=== PATIENT | female | born 1935 | race Caucasian/White ===

== ENCOUNTER 2019-05-28 12:36 | Emergency (ER) | payer MEDICARE, MEDICAID, SELFPAY ==
[2019-05-28 13:44] VITALS: PULSE 96; RESP 20; TEMP 36.5; O2SAT 98
[2019-05-28 14:50] LABS: Basophils Absolute Auto 0.02 K/mm3 (0.00-0.10); Basophils Percent Auto 0.4 % (0.0-1.0); Eosinophils Absolute Auto 0.02 K/mm3 (0.02-0.50); Eosinophils Percent Auto 0.4 % (1.0-6.0); Hematocrit 23.8 % (35.0-42.0); Hemoglobin 7.7 g/dL (11.7-13.8); Immature Granulocyte Absolute 0.02 K/mm3 (0.00-0.00); Immature Granulocyte Percent A 0.4 % (0.0-0.0); Lymphocytes Absolute Auto 0.89 K/mm3 (1.10-4.50); Lymphocytes Percent Auto 19.3 % (18.0-42.0); Mean Corpuscular HGB Conc 32.4 g/dL (32.0-36.0); Mean Corpuscular Volume 102.1 fL (78.0-102.0); Mean Platelet Volume 11.5 fl (9.2-11.8); Monocytes Absolute Auto 0.25 K/mm3 (0.10-0.90); Monocytes Percent Auto 5.4 % (2.0-11.0); Neutrophils Absolute Auto 3.4 K/mm3 (1.7-7.2); Neutrophils Percent Auto 74.1 % (50.0-70.0); Platelet Count Result 105 K/mm3 (150-420); Red Blood Count 2.33 M/mm3 (4.20-5.40); Red Cell Distribution Width 13.6 % (11.6-14.4); White Blood Count 4.6 K/mm3 (4.8-10.8)
[2019-05-28 15:02] LABS: INR 2.6; Prothrombin Time 26.2 Seconds (9.64-11.0)
[2019-05-28] MEDS: SODIUM CHLORIDE 0.9% IV 1,000 ML 120 ML IV CONT (15:08)
[2019-05-28] MEDS: HALOPERIDOL LACTATE 5 MG/ML VIAL 1 MG IM (15:13)
[2019-05-28] MEDS: ONDANSETRON INJ 4 MG/2 ML VIAL IV PUSH (15:15)
--- NOTE | 2019-05-28 15:26 | PC.NURSE ---
1500 PT. VERY AGITATED . CONFUSSED TO TIME AND PLACE. YELLING AT STAFF. ORDERS RECIEVED PER DR. SAWYER FOR AGITATION.
[2019-05-28] MEDS: HALOPERIDOL LACTATE 5 MG/ML VIAL 2 MG IM (15:52)
--- NOTE | 2019-05-28 16:26 | ED.GIBLEED ---
HPI - GI Bleed General Chief complaint: GI Bleed Stated complaint: fatigue,upset stomach Source: RN notes reviewed (notes from [facility] ) Mode of arrival: EMS Limitations: dementia History of Present Illness HPI Narrative: 83 y.o. pt. from [facility] had an episode of coffee ground emesis this AM. Takes warfarin and carvedelol daily. No hx of g.i. bleed. No code. Pt has dementia, DM, Hx of systolic and diastolic heart failure, paced rhythm, atrial fibrillation and prosthetic heart valve ROS is limited because of dementia. When I entered the exam room patient was hollering out stating she just didn't feel right but had always been healthy so didn't know how to describe it. Minutes later when asked ROS pt stated she felt great. Related Data Home Medications Medication Instructions Recorded Confirmed acetaminophen 1,000 mg PO BID 05/28/19 05/28/19 acetaminophen 650 mg PO Q4-6H PRN 05/28/19 05/28/19 allopurinol 150 mg PO DAILY 05/28/19 05/28/19 alum-mag hydroxide-simeth [Mylanta 30 ml PO Q6-8H PRN 05/28/19 05/28/19 Maximum Strength] artifi.tears(hypromellose)(PF) 1 drp OPHTHALMIC (EYE) TID 05/28/19 05/28/19 aspirin [Aspirin Low Dose] 81 mg PO DAILY 05/28/19 05/28/19 brimonidine-timolol [Combigan] 1 drp OPHTHALMIC (EYE) BID 05/28/19 05/28/19 buspirone 5 mg PO DAILY 05/28/19 05/28/19 carvedilol 3.125 mg PO BID 05/28/19 05/28/19 citalopram 20 mg PO DAILY 05/28/19 05/28/19 dextran 70-hypromellose [GenTeal 2 drp OPHTHALMIC (EYE) QID PRN 05/28/19 05/28/19 Tears Mild] ferrous sulfate 325 mg PO DAILY 05/28/19 05/28/19 fluticasone propion-salmeterol 1 inh INHALATION Q12H 05/28/19 05/28/19 [Advair Diskus] furosemide 40 mg PO DAILY 05/28/19 05/28/19 furosemide [Lasix] 40 mg PO DAILY 05/28/19 05/28/19 gabapentin 300 mg PO BID 05/28/19 05/28/19 hydroxyzine HCl 25 mg PO BID PRN 05/28/19 05/28/19 insulin glargine [Lantus Solostar 12 unit SUBCUT HS 05/28/19 05/28/19 U-100 Insulin] ipratropium-albuterol 3 ml INHALATION Q6H PRN 05/28/19 05/28/19 latanoprost 1 drp OPHTHALMIC (EYE) QPM 05/28/19 05/28/19 loperamide 4 mg PO DAILY 05/28/19 05/28/19 metformin 500 mg PO DAILY 05/28/19 05/28/19 vavdwdvolche-krf-uupv-FA-vit K 1 tablet PO DAILY 05/28/19 05/28/19 [Adults Multivitamin] polyethylene glycol 3350 [Miralax] 17 g PO DAILY PRN 05/28/19 05/28/19 sacubitril-valsartan [Entresto] 1 tablet PO BID 05/28/19 05/28/19 simvastatin 20 mg PO DAILY 05/28/19 05/28/19 spironolactone 12.5 mg PO DAILY 05/28/19 05/28/19 warfarin 4 mg PO DAILY 05/28/19 05/28/19 Allergies Allergy/AdvReac Type Severity Reaction Status Date / Time enoxaparin Allergy Unknown Verified 05/28/19 14:05 heparin Allergy Unknown Verified 05/28/19 14:05 ketorolac Allergy Unknown Verified 05/28/19 14:06 Review of Systems Review of Systems: Narrative: Reliable ROS unobtainable secondary to dementia. Notes from [facility] do not address ROS. [facility] Past Medical History Medical History Atrial fibrillation COPD (chronic obstructive pulmonary disease) Dementia Diastolic CHF, chronic Gout Pacemaker displacement Systolic CHF Surgical History Surgical History (Updated 05/29/19 @ 03:08 by Junior Dominguez MD) History of prosthetic heart valve Social History Social History (Updated 05/29/19 @ 03:08 by Junior Dominguez MD) Living arrangements: [facility] Exam Const: General: no acute distress Other: Does not know place, location, or reason she is here. HENMT: Head: normal to inspection Mouth: Yes moist mucous membranes Eyes: Conjunctivae: conjunctivae normal Neck: Neck: no lymphadenopathy Chest: Chest palpation & inspection: normal inspection of the chest Resp: Effort & Inspection: normal respiratory effort Auscultation: clear to auscultation bilaterally Cardio: Rate: regular rate Rhythm: regular rhythm GI: GI Palp: Yes Soft to palpation, No Tenderness to palpation present (GI), No Palpable mass present and N
[2019-05-28] MEDS: LORAZEPAM INJ 2 MG/ML VIAL 1 MG IV PUSH (16:39)
--- NOTE | 2019-05-28 16:43 | PC.NURSE ---
PT. CONT TO BE AGITATED. ANGRY WITH STAFF AND FAMILY FOR VARIOUS REASONS. .ORDERS RECIEVED
--- NOTE | 2019-05-28 16:49 | PC.NURSE ---
ST. STILL CALLED FOR POSSIBLE TRANSFER. CALMER . FAMILY AT BEDSIDE.
--- NOTE | 2019-05-28 17:00 | PC.NURSE ---
[facility] CALLS [facility] ACCEPT PT. WAITING FOR ROOM DEPOSITION CARE TURNED OVER TO DEB. MARISCAL. SWETA
[2019-05-28 17:05] LABS: Lactic Acid 2.4 mmol/L (0.4-2.0)
--- NOTE | 2019-05-28 17:24 | PC.NURSE ---
oriented family to new healthcare administrator, [facility]
[2019-05-28] MEDS: PANTOPRAZOLE SODIUM IV 40 MG VIAL IV PUSH (17:52)
[2019-05-28] MEDS: PHYTONADIONE ADULT INJ 10 MG in DEXTROSE 5% IN WATER 50 ML 100 MG IVPB (17:57)
[2019-05-28 18:02] LABS: BNP 137 pg/mL (0-100)
[2019-05-28 20:00] VITALS: BP 124/55; PULSE 69; RESP 16; TEMP 36.6; O2SAT 93
--- NOTE | 2019-05-30 23:28 | PC.NURSE ---
Phytonadione in Dextrose 5% IVPB stopped at 1845
== END 2019-05-28 19:15 | disposition short-term general hospital (02) ==
PROVIDERS: Emergency Provider Family Medicine; PCP Family Medicine
DX: K92.1 Melena (principal); K92.0 Hematemesis; F03.90 Unspecified dementia, unspecified severity, without behavioral disturbance, psychotic disturbance, mood disturbance, and anxiety; D64.9 Anemia, unspecified; N18.3 Chronic kidney disease, stage 3 (moderate); I48.91 Unspecified atrial fibrillation; J44.9 Chronic obstructive pulmonary disease, unspecified; I50.9 Heart failure, unspecified
CPT/HCPCS: 36415; 83605; 83880; 85025; 85610; 86850; 86900; 86901; 96361; 96365; 96372; 96375; 99283; 99285; C9113; J1630; J2060; J2405; J3430; J7030

== ENCOUNTER 2019-07-16 15:38 | Emergency (ER) | payer MEDICARE, MEDICAID, SELFPAY ==
--- NOTE | ~2019-07-16 | XR_ITS ---
EXAMINATION: XR chest 2V EXAM DATE: 07/16/2019 17:07 INDICATION: Cough, shortness of breath. Patient underwent investigation. TECHNIQUE: Frontal and lateral projections of the chest obtained and reviewed. There is no prior emmett dy for comparison. FINDINGS: There is cardiomegaly. Sternotomy wires are present without findings to suggest sternal de hiscence. 2 cardiac valve replacements. There are small pleural effusions. There is small amount of b ibasilar atelectasis. There is pulmonary vascular congestion. Indistinct reticulation probably mild p ulmonary edema. Infection not excludable but no confluent consolidation. There is no pneumothorax amish pected. There are mild bony degenerative changes. IMPRESSION: 1. Findings consistent with CHF exacerbation. 2. Bibasilar subsegmental atelectasis. 3. Infection not excludable. Reviewed, dictated and finalized at location A.
--- NOTE | ~2019-07-16 | CT_ITS ---
EXAMINATION: CT brain wo con EXAM DATE: 07/16/2019 17:09 INDICATION: Transient alteration of awareness. TECHNIQUE: Spiral CT of the head was performed without contrast. Axial, coronal and sagittal images were reviewed. The dose-length product (DLP) for this examination was 605.33 mGy-cm. The exposure w as tailored according to patient size, and iterative reconstruction (ASIR) was used as additional dos e reduction technique. There is no prior study for comparison. FINDINGS: There is no acute intraparenchymal hemorrhage. No evidence of intraparenchymal brain mass lesion. No evidence of acute infarction. Please note that initial head CT has limited sensitivity f or small or acute infarctions. 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 There is mild periventricular and subcortical hypodensity, nonspecific but probably related to small vesse l ischemic disease. There is moderate prominence of the sulci and ventricles related to cerebral at rophy. There is intracranial carotid arteriosclerosis. There are no extra-axial collections. Ther e is no mass effect or midline shift. Patient has had bilateral ocular lens surgery. Soft tissue is unremarkable. The visualized sinuses and mastoid air cells are well aerated. IMPRESSION: 1. No acute intracranial findings. 2. Chronic age related findings. 3. Small old infarctions. Reviewed, dictated and finalized at location A.
[2019-07-16 15:45] VITALS: BP 151/73; PULSE 70; RESP 14; TEMP 36.6; O2SAT 97
--- NOTE | 2019-07-16 15:46 | ED.PSYCH ---
HPI - Psych General Chief Complaint: Psychiatric Symptoms Stated Complaint: AMB Time Seen by Provider: 07/16/19 15:45 Source: patient Mode of arrival: EMS Limitations: no limitations History of Present Illness HPI Narrative: 83-year-old woman [facility] the [facility] with a complaint of suicidality. She states that she wanted to . On questioning here she states that she would have cut her wrist and even if she did have a knife as she is very resourceful. She did not take any medications other than those prescribed which was Ativan 0.25 at 3:00 p.m. today. She is up EY for COVID-19 as she has had cough and shortness of breath recently. She had negative SARS-CoV-2 test on 07/11. There are 2 residents of the penitentiary in 2 staff members who have been positive. She denies rhinorrhea, productive cough, sore throat, headaches, fever, chills, chest pain, abdominal pain, nausea, vomiting or diarrhea. She denies dysuria. MD complaint: suicidal ideation Onset (ago): hour(s) Duration: constant History of same: No Relieving factors: none Exacerbating factors: other ( At present penitentiary residence are confined to the rooms.) Associated psychiatric symptoms: suicidal ideation Associated symptoms: shortness of breath If self harm: admits thoughts of self harm and has plan Related Data Home Medications Medication Instructions Recorded Confirmed acetaminophen 1,000 mg PO BID 05/28/19 07/16/19 acetaminophen 650 mg PO Q4-6H PRN 05/28/19 07/16/19 allopurinol 150 mg PO DAILY 05/28/19 07/16/19 alum-mag hydroxide-simeth [Mylanta 30 ml PO Q6-8H PRN 05/28/19 07/16/19 Maximum Strength] artifi.tears(hypromellose)(PF) 1 drp OPHTHALMIC (EYE) TID 05/28/19 07/16/19 aspirin [Aspirin Low Dose] 81 mg PO DAILY 05/28/19 07/16/19 brimonidine-timolol [Combigan] 1 drp OPHTHALMIC (EYE) BID 05/28/19 07/16/19 buspirone 5 mg PO DAILY 05/28/19 07/16/19 carvedilol 3.125 mg PO BID 05/28/19 07/16/19 citalopram 20 mg PO DAILY 05/28/19 07/16/19 dextran 70-hypromellose [GenTeal 2 drp OPHTHALMIC (EYE) QID PRN 05/28/19 07/16/19 Tears Mild] ferrous sulfate 325 mg PO DAILY 05/28/19 07/16/19 fluticasone propion-salmeterol 1 inh INHALATION Q12H 05/28/19 07/16/19 [Advair Diskus] furosemide 40 mg PO DAILY 05/28/19 07/16/19 furosemide [Lasix] 40 mg PO DAILY 05/28/19 07/16/19 gabapentin 300 mg PO BID 05/28/19 07/16/19 hydroxyzine HCl 25 mg PO BID PRN 05/28/19 07/16/19 insulin glargine [Lantus Solostar 12 unit SUBCUT HS 05/28/19 07/16/19 U-100 Insulin] ipratropium-albuterol 3 ml INHALATION Q6H PRN 05/28/19 07/16/19 latanoprost 1 drp OPHTHALMIC (EYE) QPM 05/28/19 07/16/19 loperamide 4 mg PO DAILY 05/28/19 07/16/19 metformin 500 mg PO DAILY 05/28/19 07/16/19 xedsyyxzyaac-uri-rrjb-FA-vit K 1 tablet PO DAILY 05/28/19 07/16/19 [Adults Multivitamin] polyethylene glycol 3350 [Miralax] 17 g PO DAILY PRN 05/28/19 07/16/19 sacubitril-valsartan [Entresto] 1 tablet PO BID 05/28/19 07/16/19 simvastatin 20 mg PO DAILY 05/28/19 07/16/19 spironolactone 12.5 mg PO DAILY 05/28/19 07/16/19 warfarin 4 mg PO DAILY 05/28/19 07/16/19 Allergies Allergy/AdvReac Type Severity Reaction Status Date / Time enoxaparin Allergy Unknown Verified 05/28/19 14:05 heparin Allergy Unknown Verified 05/28/19 14:05 ketorolac Allergy Unknown Verified 05/28/19 14:06 Review of Systems Constitutional: Constitutional: Denies chills, Denies fatigue, Denies fever(s) and Denies weakness Eyes: Eyes: Denies change in vision and Denies photophobia ENT: Denies dysphagia, Denies nasal congestion and Denies sore throat Cardiovascular: Cardiovascular: Denies chest pain and Denies radiating jaw, neck or arm pain Respiratory: Respiratory: Reports cough, Reports dyspnea and Denies wheezing Gastrointestinal: Gastrointestinal: Denies abdominal pain, Denies diarrhea, Denies nausea and Denies vomiting Genitourinary: Genitourinary: Denies hematuria, Denies nocturia and Jamie
--- NOTE | 2019-07-16 15:47 | ECG_ITS ---
Measurements Intervals [place] Rate: 69 P: 208 IL: 295 QRS: -50 QRSD: 169 T: 136 QT: 434 QTc: 468 Interpretive Statements ATRIAL SENSE- ELECTRONIC VENTRICULAR PACEMAKER BASELINE ARTIFACT- I, II, III, AVR, AVL, AVF, V1, V3-V6 NO FURTHER INTERPRETATION IS POSSIBLE ATYPICAL ECG Electronically Signed On 07-16-2019 18:17:25 CDT by Chad Sams D.O.
[2019-07-16 16:05] LABS: Add Urine Microscopic? YES; Appearance Urine Clear (Clear); Bilirubin Urine Negative (Negative); Blood Urine Negative (Negative); Color Urine Yellow (Yellow); Glucose Urine UA Negative (Negative); Ketones Urine Negative (Negative); Leukocyte Esterase Ur Trace LEU/UL (Negative); Nitrate Urine Negative (Negative); Protein Urine Negative (Negative); Urobilinogen Urine 0.2 mg/dL (0.2-1.0); pH Urine 6.5 (5.0-8.0)
[2019-07-16 16:16] LABS: Amphetamine Screen Urine Negative (Negative); Bacteria Urine Trace /hpf; Barbiturate Screen Urine Negative (Negative); Benzodiazepines Screen Urine Negative (Negative); Cannabinoid Screen Urine Negative (Negative); Cocaine Screen Urine Negative (Negative); Methadone Screen Urine Negative (Negative); Opiate Screen Urine Negative (Negative); Phencyclidine Screen Urine Negative (Negative); RBC Urine 0-2 /hpf (0-2); Squamous Epithelial Cell Urine Rare /hpf (Few); WBC Urine 0-3 /hpf (0-3)
[2019-07-16 16:19] LABS: Basophils Absolute Auto 0.02 K/mm3 (0.00-0.10); Basophils Percent Auto 0.4 % (0.0-1.0); Eosinophils Absolute Auto 0.12 K/mm3 (0.02-0.50); Eosinophils Percent Auto 2.6 % (1.0-6.0); Hematocrit 32.2 % (35.0-42.0); Hemoglobin 9.6 g/dL (11.7-13.8); Immature Granulocyte Absolute 0.01 K/mm3 (0.00-0.00); Immature Granulocyte Percent A 0.2 % (0.0-0.0); Lymphocytes Absolute Auto 0.74 K/mm3 (1.10-4.50); Lymphocytes Percent Auto 16.2 % (18.0-42.0); Mean Corpuscular HGB Conc 29.8 g/dL (32.0-36.0); Mean Corpuscular Volume 103.9 fL (78.0-102.0); Mean Platelet Volume 11.1 fl (9.2-11.8); Monocytes Absolute Auto 0.56 K/mm3 (0.10-0.90); Monocytes Percent Auto 12.2 % (2.0-11.0); Neutrophils Absolute Auto 3.1 K/mm3 (1.7-7.2); Neutrophils Percent Auto 68.4 % (50.0-70.0); Platelet Count Result 129 K/mm3 (150-420); Red Cell Distribution Width 15.1 % (11.6-14.4); White Blood Count 4.6 K/mm3 (4.8-10.8)
[2019-07-16 16:24] VITALS: PULSE 66; RESP 16
[2019-07-16] MEDS: ALBUTEROL SULFATE (*SP) INHALER 4 PUFF INHALATION (16:34)
[2019-07-16 16:37] VITALS: PULSE 90; RESP 16
[2019-07-16 16:42] LABS: Alanine Aminotransferase 10 U/L (14-59); Albumin Level 3.7 g/dL (3.4-5.0); Alkaline Phosphatase 93 U/L (46-116); Anion Gap 12.6 mmol/L (7-16); Aspartate Amino Transferase 22 U/L (15-37); Bilirubin,Total 1.1 mg/dL (0.00-1.00); Blood Urea Nitrogen 26 mg/dL (7-18); Calcium 9.2 mg/dL (8.5-10.1); Carbon Dioxide 31 mmol/L (21-32); Chloride 100 mmol/L (98-108); Estimated Glomerular Filt Rate 50; Glucose 170 mg/dL (70-99); Osmolality Calculated 296 mOsm/kg (285-295); Potassium 4.6 mmol/L (3.5-5.1); Sodium 139 mmol/L (136-145); Thyroid Stimulating Hormone 4.31 uIU/mL (0.36-3.74)
[2019-07-16 16:44] LABS: Acetaminophen 0 ug/mL (10-30); Ethanol < 3 mg/dL (0-6); Salicylate < 0.3 mg/dL (2.8-20.0)
[2019-07-16] MEDS: LORAZEPAM 0.5 MG TABLET 0.25 MG PO (17:12)
[2019-07-16] MEDS: FUROSEMIDE INJ 40 MG/4 ML VIAL IV PUSH (17:28)
--- NOTE | 2019-07-16 17:59 | PC.NURSE ---
DR. NOLASCO CONTACTED, SPOKE WITH ERP
[2019-07-16] MEDS: QUEtiapine FUMARATE 25 MG TABLET 50 MG PO (18:12)
[2019-07-16 18:13] LABS: BNP 370 pg/mL (0-100)
[2019-07-16 18:15] VITALS: BP 158/77; PULSE 88; RESP 14; O2SAT 97
== END 2019-07-16 18:40 ==
PROVIDERS: Emergency Provider Emergency Medicine; PCP Family Medicine
DX: R45.1 Restlessness and agitation (principal); F03.90 Unspecified dementia, unspecified severity, without behavioral disturbance, psychotic disturbance, mood disturbance, and anxiety; I50.9 Heart failure, unspecified; I48.91 Unspecified atrial fibrillation; J44.9 Chronic obstructive pulmonary disease, unspecified; E78.5 Hyperlipidemia, unspecified; E11.9 Type 2 diabetes mellitus without complications; Z87.891 Personal history of nicotine dependence; Z79.899 Other long term (current) drug therapy
CPT/HCPCS: 36415; 70450; 71046; 80053; 80307; 81001; 83880; 84443; 85025; 93005; 94640; 96374; 99284; A9270; J1940

== ENCOUNTER 2019-10-12 16:27 | Outpatient (CLI) | payer MEDICARE, MEDICAID, SELFPAY | END 2019-10-12 16:28 | disposition home or self-care (01) | PROVIDERS: PCP Family Medicine; Visit Provider Family Medicine | DX: Z53.9 Procedure and treatment not carried out, unspecified reason (principal) | CPT/HCPCS: 99199 ==

== ENCOUNTER 2019-10-20 06:13 | Inpatient (IN) | payer MEDICARE, MEDICAID, SELFPAY ==
[2019-10-20] VITALS (7 sets, daily range): BP systolic 135–180; BP diastolic 55–77; PULSE 69–94; RESP 14–22; TEMP 36.4–37.3; O2SAT 91–98; BMI 38.2
--- NOTE | ~2019-10-20 | XR_ITS ---
EXAMINATION: XR knee LT min 4V DATE: 10/20/2019 07:23 INDICATION: Left knee pain TECHNIQUE: Four views of the left knee were obtained. COMPARISON: None. FINDINGS: No acute fracture is identified. There is partially imaged internal stabilization hardware in the distal femur traversing a healed distal femur fracture. There is diffuse edema of the visualiz ed left leg. Calcified atherosclerosis is noted. There is mild to moderate osteoarthritis of the left knee. IMPRESSION: 1. No acute osseous abnormality. Reviewed, dictated and finalized at location A.
--- NOTE | ~2019-10-20 | CT_ITS ---
EXAMINATION: CT brain wo con INDICATION: Head injury COMPARISON: 07/16/2019 TECHNIQUE: Standard unenhanced head CT. The dose-length product (DLP) was 756.67 mGy-cm. The mA was a djusted according to patient size. Iterative reconstruction technique was employed. FINDINGS: There is no acute intraparenchymal hemorrhage. No evidence of mass lesion. No evidence of a cute infarction. There is mild periventricular and subcortical hypodensity probably related to small vessel ischemic disease. There is mild prominence of the sulci and ventricles related to cerebral atr ophy. Intracranial calcified cerebral atherosclerosis is noted. There are no extra-axial collections. There is no mass effect or midline shift. Changes in the globes are likely from ocular lens surgery. There is mild mucosal thickening of the paranasal sinuses. IMPRESSION: 1. No acute intracranial abnormality. 2. Age related findings. Reviewed, dictated and finalized at location A.
--- NOTE | ~2019-10-20 | CT_ITS ---
EXAMINATION: CT pelvis wo con DATE: 10/20/2019 07:53 INDICATION: Left hip pain after fall TECHNIQUE: Computed tomography (CT) of the pelvis was performed without intravenous contrast. The dos e-length product (DLP) was 1043.64 mGy-cm. Automated exposure control and iterative reconstruction te chnique were employed. COMPARISON: None FINDINGS: Imaged intramedullary sarah in the left femur. No acute fracture is identified. Bone alignmen t is normal. There is a moderate-sized umbilical hernia containing fat and ascites. A masslike area i s seen medially in the left gluteal soft tissues. IMPRESSION: 1. No acute osseous abnormality. 2. Likely hematoma in the medial left gluteal soft tissues. Reviewed, dictated and finalized at location A.
--- NOTE | ~2019-10-20 | US_ITS ---
EXAMINATION: US venous doppler [facility] DATE: 10/21/2019 09:31 INDICATION: Bilateral lower limb pain TECHNIQUE: Sal scale images without and with compression and Doppler images of the bilateral lower e xtremity veins were obtained. COMPARISON: None FINDINGS: The right common femoral vein, profunda femoral vein, femoral vein, popliteal vein, peroneal trunk, p osterior tibial veins, and greater saphenous vein are patent. A Alvarez's cyst is noted in the right po pliteal fossa. The left common femoral vein, profunda femoral vein, femoral vein, popliteal vein, peroneal trunk, po sterior tibial veins, and greater saphenous vein are patent. IMPRESSION: 1. Patent bilateral lower extremity veins. No evidence of deep venous thrombosis. Reviewed, dictated and finalized at location A. IMPRESSION: 1. Patent bilateral lower extremity veins. No evidence of deep venous thrombosi s.
[2019-10-20] MEDS: HYDROmorphone HCL 2 MG/ML VIAL 1 MG IM (07:05)
--- NOTE | 2019-10-20 07:10 | ED.LOWEXIN ---
HPI - Extremity Injury (Lower) General Chief Complaint: Extremity Injury, Lower Stated Complaint: left knee pain Time Seen by Provider: 10/20/19 07:10 Source: patient Mode of arrival: wheelchair Limitations: no limitations History of Present Illness HPI Narrative: 84-year-old woman who comes by wheelchair to the emergency department today from the assisted with complaint of left knee pain. When patient is asked what happened, she states that she fell. Patient is agitated stating that her leg hurts, she wants to be put out of her misery and or to remove her leg. When asked for more details like when or where or where she was injured she exclaims, I do not know. detention staff states that the patient fell twice 5 days ago, hitting her head. She has been complaining of pain intermittently until yesterday when she began complaining of pain constantly. Staff states that she has a hematoma on her left upper arm that has been present since 5 days ago. Patient is usually ambulatory and often gets up on her own in spite of staff instructions to call for help. MD complaint: knee injury Injury: Left: knee Type of Injury: unknown Place: other (detention) Severity: severe Relieving factors: nothing Exacerbating factors: weight bearing, movement and palpation Context: fall Associated symptoms: able to partially bear weight Treatments prior to arrival: bandage Related Data Home Medications Medication Instructions Recorded Confirmed acetaminophen 1,000 mg PO BID 05/28/19 10/20/19 allopurinol 200 mg PO DAILY 05/28/19 10/20/19 alum-mag hydroxide-simeth [Mylanta 30 ml PO Q6-8H PRN 05/28/19 10/20/19 Maximum Strength] artifi.tears(hypromellose)(PF) 1 drp OPHTHALMIC (EYE) TID 05/28/19 10/20/19 brimonidine-timolol [Combigan] 1 drp OPHTHALMIC (EYE) BID 05/28/19 10/20/19 buspirone 5 mg PO DAILY 05/28/19 10/20/19 carvedilol 3.125 mg PO BID 05/28/19 10/20/19 citalopram 20 mg PO DAILY 05/28/19 10/20/19 ferrous sulfate 325 mg PO DAILY 05/28/19 10/20/19 fluticasone propion-salmeterol 1 inh INHALATION Q12H 05/28/19 10/20/19 [Advair Diskus] furosemide 40 mg PO BID 05/28/19 10/20/19 gabapentin 300 mg PO BID 05/28/19 10/20/19 insulin glargine [Lantus Solostar 12 unit SUBCUT HS 05/28/19 10/20/19 U-100 Insulin] ipratropium-albuterol 3 ml INHALATION Q6H PRN 05/28/19 10/20/19 latanoprost 1 drp OPHTHALMIC (EYE) QPM 05/28/19 10/20/19 loperamide 4 mg PO DAILY 05/28/19 10/20/19 metformin 500 mg PO BID 05/28/19 10/20/19 rokwxbvmsngq-knv-zyvn-FA-vit K 1 tablet PO DAILY 05/28/19 10/20/19 [Adults Multivitamin] polyethylene glycol 3350 [Miralax] 17 g PO DAILY PRN 05/28/19 10/20/19 sacubitril-valsartan [Entresto] 1 tablet PO BID 05/28/19 10/20/19 simvastatin 20 mg PO DAILY 05/28/19 10/20/19 spironolactone 12.5 mg PO DAILY 05/28/19 10/20/19 warfarin 4.5 mg PO DAILY 05/28/19 10/20/19 loperamide 2 mg PO DAILY 10/20/19 10/20/19 lorazepam 0.5 mg PO TID PRN 10/20/19 10/20/19 Allergies Allergy/AdvReac Type Severity Reaction Status Date / Time enoxaparin Allergy Unknown Verified 05/28/19 14:05 heparin Allergy Unknown Verified 05/28/19 14:05 ketorolac Allergy Unknown Verified 05/28/19 14:06 Review of Systems Review of Systems: Narrative: Limited by patient's mental status: alternately agitated and answering question with I don't know. ROS unobtainable: Yes unobtainable due to mental status Constitutional: Constitutional: Reports chills Eyes: Eyes: Reports change in vision Cardiovascular: Cardiovascular: Denies chest pain Gastrointestinal: Gastrointestinal: Denies abdominal pain Neurologic: Denies dizziness Allergic/Immunologic: Allergic/Immunologic: Denies lip swelling and Denies wheezing PMFSH Past Medical History Medical History Anxiety Atrial fibrillation COPD (chronic obstructive pulmonary disease) Dementia Depression Diastolic CHF, chronic Dyslipidemia GERD (gastro
[2019-10-20] MEDS: ONDANSETRON HCL ODT 4 MG TABLET PO (07:28)
[2019-10-20] MEDS: HYDROmorphone HCL 2 MG/ML VIAL 0.5 MG IM (07:29)
[2019-10-20] MEDS: NEOMYCIN/POLYMYXIN/BACITRACIN OINTMENT 15 GM TUBE 1 APPLIC TOPICAL (07:32)
--- NOTE | 2019-10-20 07:32 | PC.NURSE ---
skin tear to left upper arm cleaned. neosporin applied and dressing applied. no bleeding noted. large amt of bruising noted to left upper arm around skin tear.
[2019-10-20 08:16] LABS: Basophils Absolute Auto 0.02 K/mm3 (0.00-0.10); Basophils Percent Auto 0.4 % (0.0-1.0); Eosinophils Absolute Auto 0.11 K/mm3 (0.02-0.50); Eosinophils Percent Auto 1.9 % (1.0-6.0); Hematocrit 29.2 % (35.0-42.0); Hemoglobin 8.7 g/dL (11.7-13.8); Immature Granulocyte Absolute 0.03 K/mm3 (0.00-0.00); Immature Granulocyte Percent A 0.5 % (0.0-0.0); Lymphocytes Absolute Auto 0.62 K/mm3 (1.10-4.50); Mean Corpuscular HGB Conc 29.8 g/dL (32.0-36.0); Mean Corpuscular Hemoglobin 30.9 pg (27.0-31.0); Mean Corpuscular Volume 103.5 fL (78.0-102.0); Monocytes Absolute Auto 0.57 K/mm3 (0.10-0.90); Monocytes Percent Auto 10.1 % (2.0-11.0); Neutrophils Absolute Auto 4.3 K/mm3 (1.7-7.2); Neutrophils Percent Auto 76.1 % (50.0-70.0); Platelet Count Result 145 K/mm3 (150-420); Red Blood Count 2.82 M/mm3 (4.20-5.40); Red Cell Distribution Width 15.3 % (11.6-14.4); White Blood Count 5.7 K/mm3 (4.8-10.8)
[2019-10-20 08:22] LABS: Add Urine Microscopic? NO; Appearance Urine Clear (Clear); Bilirubin Urine Negative (Negative); Blood Urine Negative (Negative); Color Urine Yellow (Yellow); Glucose Urine UA Negative (Negative); Ketones Urine Negative (Negative); Leukocyte Esterase Ur Negative (Negative); Nitrate Urine Negative (Negative); Protein Urine Negative (Negative); Specific Grav Ur 1.015 (1.010-1.020); Urobilinogen Urine 0.2 mg/dL (0.2-1.0)
--- NOTE | 2019-10-20 08:24 | PC.NURSE ---
pt continues to yell and scream. c/o knee pain and needing repositioned. pt repositioned. no change in c/o
[2019-10-20 08:27] LABS: Alanine Aminotransferase 13 U/L (14-59); Alkaline Phosphatase 105 U/L (46-116); Aspartate Amino Transferase 29 U/L (15-37); Bilirubin,Total 1.6 mg/dL (0.00-1.00); Blood Urea Nitrogen 53 mg/dL (7-18); Calcium 8.9 mg/dL (8.5-10.1); Carbon Dioxide 31 mmol/L (21-32); Estimated CRCL calculation 30 ml/min; Estimated Glomerular Filt Rate 32; Glucose 151 mg/dL (70-99); Total Protein 8.3 g/dL (6.4-8.2)
--- NOTE | 2019-10-20 08:30 | PC.NURSE ---
pt repositioned. erp at bedside. large amt of bruising noted to buttocks bilat and lower back
[2019-10-20 08:43] LABS: Partial Thromboplastin Time 78.7 SEC (22.3-31.6); Prothrombin Time 122.6 Seconds (9.64-11.0)
[2019-10-20 09:15] LABS: Anion Gap 11.5 mmol/L (7-16); Chloride 96 mmol/L (98-107); Osmolality Calculated 293 mOsm/kg (285-295); Potassium 5.5 mmol/L (3.4-5.0); Sodium 133 mmol/L (137-145)
--- NOTE | 2019-10-20 09:34 | PC.NURSE ---
ERP on phone with PMD discussing lab test results.
--- NOTE | 2019-10-20 09:51 | PM.IMHP ---
H&P: HPI History of Present Illness Date/Time: 10/20/19 09:51 Chief complaint: fall head injury Narrative: Suellen Mohamud is a 84 year old female status post fall. Patient is a poor historian all information obtained from medical records. Patient has a past medical history of anxiety, AFib, COPD, dementia, depression, CHF, dyslipidemia, GERD, glyco Thurman, gout, pacemaker displacement, polyneuropathy, and diabetes. according to the notes patient had 2 falls within the last 5 days with injury to her head. She has complained of pain to the nursing staff at the [place] [facility] that she resides in Patient's vital signs are 149/7788, 20, 97.5, 98% on 2 L nasal cannula. Patient H&H is 8.7 and 29.2, her INR is 13.0, her sodium was 133, her potassium is 5.5, her creatinine and BUN is 1.56 and 53 with a GFR of 32 total bili slightly elevated at 1.6, BUN at 382. CT of the pelvis and head and knee x-ray negative. while patient was in the ED she received vitamin K 5 mg. Patient being admitted for elevated INR and potassium in acute on chronic renal failure Review of Systems Review of Systems: ROS unobtainable: Yes unobtainable due to mental status PMFSH Past Medical History Medical History Anxiety Atrial fibrillation COPD (chronic obstructive pulmonary disease) Dementia Depression Diastolic CHF, chronic Dyslipidemia GERD (gastroesophageal reflux disease) Glaucoma Gout Pacemaker displacement Polyneuropathy Systolic CHF T2DM (type 2 diabetes mellitus) Social History Social History Smoking status: Former smoker Alcohol intake: never Substance use: never Gender identity (if verbalized by the patient): Female Spiritual care concerns: No Meds Home Medications and Allergies Home Medications Medication Instructions Recorded Confirmed Type acetaminophen 1,000 mg PO BID 05/28/19 10/20/19 History allopurinol 200 mg PO DAILY 05/28/19 10/20/19 History alum-mag hydroxide-simeth [Mylanta 30 ml PO Q6-8H PRN 05/28/19 10/20/19 History Maximum Strength] artifi.tears(hypromellose)(PF) 1 drp OPHTHALMIC (EYE) TID 05/28/19 10/20/19 History brimonidine-timolol [Combigan] 1 drp OPHTHALMIC (EYE) BID 05/28/19 10/20/19 History buspirone 5 mg PO DAILY 05/28/19 10/20/19 History carvedilol 3.125 mg PO BID 05/28/19 10/20/19 History citalopram 20 mg PO DAILY 05/28/19 10/20/19 History ferrous sulfate 325 mg PO DAILY 05/28/19 10/20/19 History fluticasone propion-salmeterol 1 inh INHALATION Q12H 05/28/19 10/20/19 History [Advair Diskus] furosemide 40 mg PO BID 05/28/19 10/20/19 History gabapentin 300 mg PO BID 05/28/19 10/20/19 History insulin glargine [Lantus Solostar 12 unit SUBCUT HS 05/28/19 10/20/19 History U-100 Insulin] ipratropium-albuterol 3 ml INHALATION Q6H PRN 05/28/19 10/20/19 History latanoprost 1 drp OPHTHALMIC (EYE) QPM 05/28/19 10/20/19 History loperamide 4 mg PO DAILY 05/28/19 10/20/19 History metformin 500 mg PO BID 05/28/19 10/20/19 History jzpezbsdqipe-rdz-kjan-FA-vit K 1 tablet PO DAILY 05/28/19 10/20/19 History [Adults Multivitamin] polyethylene glycol 3350 [Miralax] 17 g PO DAILY PRN 05/28/19 10/20/19 History sacubitril-valsartan [Entresto] 1 tablet PO BID 05/28/19 10/20/19 History simvastatin 20 mg PO DAILY 05/28/19 10/20/19 History spironolactone 12.5 mg PO DAILY 05/28/19 10/20/19 History warfarin 4.5 mg PO DAILY 05/28/19 10/20/19 History loperamide 2 mg PO DAILY 10/20/19 10/20/19 History lorazepam 0.5 mg PO TID PRN 10/20/19 10/20/19 History Allergies Allergy/AdvReac Type Severity Reaction Status Date / Time enoxaparin Allergy Unknown Verified 05/28/19 14:05 heparin Allergy Unknown Verified 05/28/19 14:05 ketorolac Allergy Unknown Verified 05/28/19 14:06 Vital Signs Vital Signs - 24 hr 10/20/19 07:11 10/20/19 08:26 Temperature 98.1 F 97.5 F L Pulse Rate 94 88 Respiratory Rate 22 H
--- NOTE | 2019-10-20 10:23 | PC.NURSE ---
report called to sydney palacios
[2019-10-20 11:31] LABS: Glucose Point of Care 186 (65-105)
[2019-10-20] MEDS: PHYTONADIONE 5 MG TABLET PO (11:32)
[2019-10-20] MEDS: PHARMACIST COMMUNICATION ORDER 1 EACH XX (11:32)
--- NOTE | 2019-10-20 17:00 | PC.NURSE ---
Incorrect activity charted on patient, patient has remained in bed throughout shift, incontinent of bladder x 2
[2019-10-20] MEDS: MORPHINE SULFATE 2 MG/ML INJ IV PUSH ×2 (17:07→23:04)
--- NOTE | 2019-10-20 17:10 | PC.NURSE ---
IV site right wrist infiltrated while administering pain medication. IV site discontinued. New IV site initiated in right forearm
[2019-10-20] MEDS: SACUBITRIL/VALSARTAN 24-26 MG TABLET 1 TAB PO (17:12)
[2019-10-20] MEDS: GABAPENTIN 300 MG CAPSULE PO (17:13)
[2019-10-20] MEDS: LATANOPROST 0.005% OP SOLN 2.5 ML BTL 1 DROP EACH EYE (17:13)
[2019-10-20] MEDS: SIMVASTATIN 10 MG TABLET 20 MG PO (17:14)
[2019-10-20] MEDS: FUROSEMIDE 40 MG TABLET PO (17:14)
[2019-10-20 17:25] LABS: Glucose Point of Care 207 (65-105)
[2019-10-20] MEDS: MORPHINE SULFATE 4 MG/ML INJ IV PUSH (18:17)
--- NOTE | 2019-10-20 19:30 | PC.NURSE ---
Patient continues to call out. Morphine appears to have little effect on pain. PRN ativan and tylenol given for pain 10 out of 10. Screaming declines when staff is in room with patient. Skin tear to right upper arm cleaned, steristrips applied cover with ABD pad and clean gauze. Patient complains about various areas in pain-left knee, right knee, nose, shoulder, arms and feet. Able to persuade to drink some water and diet soda.
[2019-10-20] MEDS: ACETAMINOPHEN 500 MG TABLET 1000 MG PO (19:33)
[2019-10-20] MEDS: LORazepam 0.5 MG TABLET PO ×2 (19:33→23:52)
[2019-10-20] MEDS: SALMET XINAFT/FLUTIC PROPIN 250 MCG/50 MCG INH CAP 1 PUFF INHALATION (21:18)
[2019-10-20] MEDS: carvediloL 3.125 MG TABLET PO (21:18)
[2019-10-20] MEDS: BRIMONIDINE TARTRATE 0.2% OP SOLN 5 ML BTL 1 DROP EACH EYE (21:18)
[2019-10-20 21:26] LABS: Glucose Point of Care 197 (65-105)
[2019-10-20] MEDS: INSULIN GLARGINE (*BKC) 100 UNITS/ML 12 UNITS SUB-Q (21:40)
--- NOTE | 2019-10-20 23:16 | PC.NURSE ---
Patient continues to scream complaining of pain to left leg and other parts of body. SPO2 91%on 2 liters-does take nasal cannula out of her nose frequently. PRN morphine given for continue complaint of discomfort. continues on telemetry
[2019-10-21] VITALS (10 sets, daily range): BP systolic 104–132; BP diastolic 32–59; PULSE 70; RESP 16–20; TEMP 36.6–37.2; O2SAT 92–97
--- NOTE | 2019-10-21 00:13 | PC.NURSE ---
Patient continues to scream and call out. Repositioned and warm blanket for comfort. PRN ativan given also
--- NOTE | 2019-10-21 01:28 | PC.NURSE ---
MD notified that patient is yelling out and complaining her left knee hurts. Several attempts to reposition leg made but patient continued to yell and curse. New orders received.
--- NOTE | 2019-10-21 03:35 | PC.NURSE ---
In bed, HOB elevated, dressing to left upper arm in place, bruising noted to left upper arm and left chin, various bruised areas over body noted, moaning at times, confused, side rails up and call light in reach, hollers out get me out of here , no distress noted, no cough, oxygen on at 3L NC at this time, no congestion noted
--- NOTE | 2019-10-21 04:28 | PC.NURSE ---
Repositioned to right side, dressing in place to left arm, hollering out, my leg hurts, set me up, get me out, re oriented to hospital setting, side rails up and call light in reach
[2019-10-21] MEDS: ACETAMINOPHEN 500 MG TABLET 1000 MG PO (04:33)
--- NOTE | 2019-10-21 04:35 | PC.NURSE ---
Tylenol given for pain in legs, no respiratory distress noted, telemetry paced, encouraged to let tylenol work, continues to holler out
--- NOTE | 2019-10-21 04:55 | PC.NURSE ---
Continues to holler out my leg is broke, advised patient that all imaging was negative for new fractures, continues to holler out help me
[2019-10-21] MEDS: MORPHINE SULFATE 2 MG/ML INJ IV PUSH ×3 (04:58→20:43)
[2019-10-21 05:37] LABS: Basophils Absolute Auto 0.01 K/mm3 (0.00-0.10); Basophils Percent Auto 0.2 % (0.0-1.0); Eosinophils Absolute Auto 0.01 K/mm3 (0.02-0.50); Eosinophils Percent Auto 0.2 % (1.0-6.0); Hematocrit 27.2 % (35.0-42.0); Hemoglobin 8.1 g/dL (11.7-13.8); Immature Granulocyte Absolute 0.02 K/mm3 (0.00-0.00); Immature Granulocyte Percent A 0.4 % (0.0-0.0); Lymphocytes Absolute Auto 0.53 K/mm3 (1.10-4.50); Mean Corpuscular HGB Conc 29.8 g/dL (32.0-36.0); Mean Corpuscular Hemoglobin 31.4 pg (27.0-31.0); Mean Corpuscular Volume 105.4 fL (78.0-102.0); Monocytes Absolute Auto 0.48 K/mm3 (0.10-0.90); Neutrophils Absolute Auto 4.3 K/mm3 (1.7-7.2); Neutrophils Percent Auto 80.2 % (50.0-70.0); Nucleated Red Blood Cells Absolute Auto 0.02 K/mm3 (0.00-0.00); Nucleated Red Blood Cells Perc 0.4 % (0-0.0); Platelet Count Result 137 K/mm3 (150-420); Red Blood Count 2.58 M/mm3 (4.20-5.40); Red Cell Distribution Width 15.7 % (11.6-14.4); White Blood Count 5.3 K/mm3 (4.8-10.8)
[2019-10-21 05:47] LABS: Anion Gap 11.1 mmol/L (7-16); Blood Urea Nitrogen 58 mg/dL (7-18); Calcium 8.7 mg/dL (8.5-10.1); Carbon Dioxide 28 mmol/L (21-32); Chloride 97 mmol/L (98-108); Estimated CRCL calculation 24 ml/min; Estimated Glomerular Filt Rate 25; Glucose 206 mg/dL (70-99); Osmolality Calculated 292 mOsm/kg (285-295); Potassium 6.1 mmol/L (3.5-5.1); Sodium 130 mmol/L (136-145)
[2019-10-21 05:57] LABS: Prothrombin Time 127.1 Seconds (9.64-11.0)
[2019-10-21 05:59] LABS: INR 13.5
[2019-10-21 07:15] LABS: Glucose Point of Care 194 (65-105)
--- NOTE | 2019-10-21 07:47 | PC.NURSE ---
Morning assessment done by Karthik Joyce RN,
[2019-10-21] MEDS: SODIUM CHLORIDE 0.9% IV 1,000 ML 75 ML IV CONT (08:08)
[2019-10-21] MEDS: PHYTONADIONE 5 MG TABLET PO ×2 (08:09→16:51)
[2019-10-21] MEDS: DEXTROSE 50% 25 GM/50 ML SYRINGE IV PUSH (08:10)
[2019-10-21] MEDS: INSULIN HUMAN REGULAR (*BKC) 100 UNITS/ML 10 UNITS IV PUSH (08:11)
--- NOTE | 2019-10-21 08:31 | PC.NURSE ---
Hollering out again in pain, hospitalist evaluated patient and pending orders for ultrasound of leg
[2019-10-21] MEDS: GABAPENTIN 300 MG CAPSULE PO (08:38)
[2019-10-21] MEDS: SACUBITRIL/VALSARTAN 24-26 MG TABLET 1 TAB PO (08:38)
[2019-10-21] MEDS: SPIRONOLACTONE 25 MG TABLET 12.5 MG PO (08:39)
[2019-10-21] MEDS: FUROSEMIDE 40 MG TABLET PO (08:40)
[2019-10-21] MEDS: LORazepam 0.5 MG TABLET PO (08:40)
[2019-10-21] MEDS: FERROUS SULFATE 324 MG TABLET PO (08:40)
[2019-10-21] MEDS: LOPERAMIDE HCL 2 MG CAPSULE 4 MG PO (08:40)
[2019-10-21] MEDS: CITALOPRAM HYDROBROMIDE 20 MG TABLET PO (08:41)
[2019-10-21] MEDS: PANTOPRAZOLE 40 MG TABLET PO (08:41)
[2019-10-21] MEDS: allopurinoL 100 MG TABLET 200 MG PO (08:41)
[2019-10-21] MEDS: THERAPEUTIC MULTIVITAMINS/MINERALS TAB (*BKC) 1 TABLET PO (08:42)
[2019-10-21] MEDS: busPIRone HCL 5 MG TABLET PO (08:42)
[2019-10-21] MEDS: carvediloL 3.125 MG TABLET PO ×2 (08:42→20:44)
[2019-10-21] MEDS: SALMET XINAFT/FLUTIC PROPIN 250 MCG/50 MCG INH CAP 1 PUFF INHALATION ×2 (08:43→20:44)
[2019-10-21] MEDS: BRIMONIDINE TARTRATE 0.2% OP SOLN 5 ML BTL 1 DROP EACH EYE ×2 (08:43→20:44)
--- NOTE | 2019-10-21 09:01 | P.PN_ITS ---
Progress Note: A&P Assessment and Plan (1) Elevated INR: Code(s): R79.1 - Abnormal coagulation profile <Francis Castle ALTERATIONS EXPERT-C - Last Filed: 10/21/19 10:44> Status: Acute <Francis Castle ALTERATIONS EXPERTMeetaC - Last Filed: 10/21/19 10:44> Assessment and Plan: * INR 13.0 on admission more elevated 13.5 * vitamin K 5 mg given in ED an additional dose of vitamin K 5 mg given today * repeat INR in the a.m. and at 2:00 a.m. p.m. today * warfarin on hold * no active bleeding noted <Francis RobbJasmin Tin ALTERATIONS EXPERT-C - Last Filed: 10/21/19 10:44> (2) Hyperkalemia: Code(s): E87.5 - Hyperkalemia <Francis RobbJasmin Tin ALTERATIONS EXPERT-C - Last Filed: 10/21/19 10:44> Status: Acute <Francis Castle ALTERATIONS EXPERTMeetaParveen - Last Filed: 10/21/19 10:44> Assessment and Plan: * potassium slightly elevated at 5.5 on admission today increased at 6.1 today * D50 with 10 units of insulin given * possibly secondary to acute /chronic renal failure * will repeat in potassium level at 2:00 a.m. and then again in the a.m. * continue telemetry <Francis Castle ALTERATIONS EXPERT-C - Last Filed: 10/21/19 10:44> (3) Acute on chronic renal failure: Code(s): N17.9 - Acute kidney failure, unspecified; N18.9 - Chronic kidney disease, unspecified <Francis RobbJasmin Tin ALTERATIONS EXPERT-C - Last Filed: 10/21/19 10:44> Status: Acute <Francis Castle ALTERATIONS EXPERT-Parveen - Last Filed: 10/21/19 10:44> Assessment and Plan: * patient baseline creatinine is 1.08-1.27 currently 1.89, patient GFR at 35 to baseline 40-50, renal function has worsened * avoid nephrotoxic agents * renal dose all medication <Francis RobbJasmin Tin ALTERATIONS EXPERT-C - Last Filed: 10/21/19 10:44> (4) COPD (chronic obstructive pulmonary disease): Code(s): J44.9 - Chronic obstructive pulmonary disease, unspecified <Francis Castle ALTERATIONS EXPERTMeetaParveen - Last Filed: 10/21/19 10:44> Status: Acute <Francis Castle ALTERATIONS EXPERTMeetaParveen - Last Filed: 10/21/19 10:44> Assessment and Plan: * stable * contin inhaler <Francis Castle ALTERATIONS EXPERTMeetaParveen - Last Filed: 10/21/19 10:44> (5) GERD (gastroesophageal reflux disease): Code(s): K21.9 - Gastro-esophageal reflux disease without esophagitis <Francis Castle ALTERATIONS EXPERT-C - Last Filed: 10/21/19 10:44> Status: Acute <Francis Castle ALTERATIONS EXPERTMeetaParveen - Last Filed: 10/21/19 10:44> Assessment and Plan: * started Protonix <Francis RobbJasmin Castle ALTERATIONS EXPERTMeetaParveen - Last Filed: 10/21/19 10:44> (6) T2DM (type 2 diabetes mellitus): Code(s): E11.9 - Type 2 diabetes mellitus without complications <Francis Castle ALTERATIONS EXPERTMeetaParveen - Last Filed: 10/21/19 10:44> Status: Acute <Francis Castle ALTERATIONS EXPERTMeetaParveen - Last Filed: 10/21/19 10:44> Assessment and Plan: * stable * continue Lantus 12 mg subcu HS * continue sliding scale with Accu-Cheks and hypoglycemic protocol * continue diabetic diet * will adjust medication as needed * metformin on hold due to renal function <Francis RobbLILIANE Durán - Last Filed: 10/21/19 10:44> (7) Diastolic CHF, chronic: Code(s): I50.32 - Chronic diastolic (congestive) heart failure <Tyдмитрий ClarisseLILIANE Durán - Last Filed: 10/21/19 10:44> Status: Acute <Francis Castle ALTERATIONS EXPERT-C - Last Filed: 10/21/19 10:44> Assessment and Plan: * D-dimer has elevated since admission is currently 982 will decrease IV fluids * weight daily, review * continue Lasix and spironolactone <Francis ClarisseLILIANE Durán - Last Filed: 10/21/19 10:44> (8) Atrial fibrillation: Code(s): I48.91 - Unspecified atrial fi
--- NOTE | 2019-10-21 09:01 | PC.NURSE ---
Ultrasound at the bedside
--- NOTE | 2019-10-21 09:01 | WPDPN ---
Progress Note: A&P Assessment and Plan (1) Elevated INR: Code(s): R79.1 - Abnormal coagulation profile <Francis RobbJasmin Tin PHARMACIST IN CHARGE-C - Last Filed: 10/21/19 10:44> Status: Acute <Francis Castle PHARMACIST IN CHARGEMeetaParveen - Last Filed: 10/21/19 10:44> Assessment and Plan: INR 13.0 on admission more elevated 13.5 vitamin K 5 mg given in ED an additional dose of vitamin K 5 mg given today repeat INR in the a.m. and at 2:00 a.m. p.m. today warfarin on hold no active bleeding noted <Francis RobbJasmin Tin PHARMACIST IN CHARGE-C - Last Filed: 10/21/19 10:44> (2) Hyperkalemia: Code(s): E87.5 - Hyperkalemia <Francis RobbJasmin Tin PHARMACIST IN CHARGE-C - Last Filed: 10/21/19 10:44> Status: Acute <Francis RobbJasmin Tin PHARMACIST IN CHARGE-C - Last Filed: 10/21/19 10:44> Assessment and Plan: potassium slightly elevated at 5.5 on admission today increased at 6.1 today D50 with 10 units of insulin given possibly secondary to acute /chronic renal failure will repeat in potassium level at 2:00 a.m. and then again in the a.m. continue telemetry <Francis RobbJasmin Tin PHARMACIST IN CHARGE-C - Last Filed: 10/21/19 10:44> (3) Acute on chronic renal failure: Code(s): N17.9 - Acute kidney failure, unspecified; N18.9 - Chronic kidney disease, unspecified <Francis RobbJasmin Castle PHARMACIST IN CHARGE-C - Last Filed: 10/21/19 10:44> Status: Acute <Francis RobbJasmin Tin PHARMACIST IN CHARGEMeetaParveen - Last Filed: 10/21/19 10:44> Assessment and Plan: patient baseline creatinine is 1.08-1.27 currently 1.89, patient GFR at 35 to baseline 40-50, renal function has worsened avoid nephrotoxic agents renal dose all medication <Francis RobbJasmin Castle PHARMACIST IN CHARGE-C - Last Filed: 10/21/19 10:44> (4) COPD (chronic obstructive pulmonary disease): Code(s): J44.9 - Chronic obstructive pulmonary disease, unspecified <Francis Castle SAPPHIRE-C - Last Filed: 10/21/19 10:44> Status: Acute <SAPPHIRE Conklin-C - Last Filed: 10/21/19 10:44> Assessment and Plan: stable contin inhaler <Francis Castle SAPPHIRE-C - Last Filed: 10/21/19 10:44> (5) GERD (gastroesophageal reflux disease): Code(s): K21.9 - Gastro-esophageal reflux disease without esophagitis <Francis Castle SAPPHIRE-C - Last Filed: 10/21/19 10:44> Status: Acute <Francis Castle SAPPHIRE-Parveen - Last Filed: 10/21/19 10:44> Assessment and Plan: started Protonix <Francis Castle SAPPHIRE-C - Last Filed: 10/21/19 10:44> (6) T2DM (type 2 diabetes mellitus): Code(s): E11.9 - Type 2 diabetes mellitus without complications <Francis Castle SAPPHIRE-C - Last Filed: 10/21/19 10:44> Status: Acute <Francis Castle SAPPHIRE-C - Last Filed: 10/21/19 10:44> Assessment and Plan: stable continue Lantus 12 mg subcu HS continue sliding scale with Accu-Cheks and hypoglycemic protocol continue diabetic diet will adjust medication as needed metformin on hold due to renal function <Francis Castle SAPPHIRE-C - Last Filed: 10/21/19 10:44> (7) Diastolic CHF, chronic: Code(s): I50.32 - Chronic diastolic (congestive) heart failure <Francis Castle SAPPHIRE-C - Last Filed: 10/21/19 10:44> Status: Acute <Francis Castle SAPPHIRE-C - Last Filed: 10/21/19 10:44> Assessment and Plan: D-dimer has elevated since admission is currently 982 will decrease IV fluids weight daily, review continue Lasix and spironolactone <Francis Catalan Tin SAPPHIRE-C - Last Filed: 10/21/19 10:44> (8) Atrial fibrillation: Code(s): I48.91 - Unspecified atrial fibrillation <LILIANE Conklin - Last Filed: 10/21/19 10:44> Status: Acute <LILIANE Conklin - Last Filed: 10/21/19 10:44> Assessment and Plan: warfarin on hold due to increased INR continue carvedilol, started telemetry <LILIANE Conklin - Last Filed: 10/21/19 10:44> (9) Dyslipidemia: Code(s): E7
[2019-10-21 09:04] LABS: D Dimer 0.61 mg/L (0.19-0.50)
[2019-10-21 09:10] LABS: BNP 982 pg/mL (0-100)
--- NOTE | 2019-10-21 09:39 | PC.NURSE ---
Incontinent of urine, no respiratory distress, continues to holler out in pain due to left thigh pain, no deformity noted, xray yesterday negative, hospitalist aware of patient complaints, dopplar completed, morphine for pain was given, fluids infusing, attempted to place patient in comfortable position
--- NOTE | 2019-10-21 10:02 | PC.NURSE ---
Comfortable, no yelling at this time, eyes closed resp non labored
[2019-10-21 11:19] LABS: Glucose Point of Care 201 (65-105)
--- NOTE | 2019-10-21 12:45 | PC.NURSE ---
sleeping, arousable to voice, falls back to sleep quickly, fluids infusing, takes small sips of fluids as offerred
--- NOTE | 2019-10-21 13:20 | PC.NURSE ---
Changed to inpatient status from observation, remains on telemetry paced at 70
[2019-10-21 14:11] LABS: Alanine Aminotransferase 13 U/L (14-59); Albumin Level 3.4 g/dL (3.4-5.0); Alkaline Phosphatase 94 U/L (46-116); Aspartate Amino Transferase 31 U/L (15-37); Bilirubin,Total 1.3 mg/dL (0.00-1.00); Blood Urea Nitrogen 59 mg/dL (7-18); Calcium 8.6 mg/dL (8.5-10.1); Carbon Dioxide 32 mmol/L (21-32); Chloride 98 mmol/L (98-108); Estimated CRCL calculation 22 ml/min; Estimated Glomerular Filt Rate 23; Glucose 202 mg/dL (70-99); Osmolality Calculated 294 mOsm/kg (285-295); Sodium 131 mmol/L (136-145); Total Protein 7.5 g/dL (6.4-8.2)
[2019-10-21 15:54] LABS: Prothrombin Time 97.8 Seconds (9.64-11.0)
[2019-10-21 16:05] LABS: INR 10.3
[2019-10-21 16:57] LABS: Glucose Point of Care 191 (65-105)
--- NOTE | 2019-10-21 17:01 | PC.NURSE ---
pt wakes to shaking, will take crushed vit k in applesauce then returns to sleep, iv running, rails up, hob up
--- NOTE | 2019-10-21 20:56 | PC.NURSE ---
nurse reports pt sounding congested while performing her assessment of lungs, dr notified, fluids stopped
[2019-10-21] MEDS: INSULIN GLARGINE (*BKC) 100 UNITS/ML 12 UNITS SUB-Q (21:02)
[2019-10-21 21:12] LABS: Glucose Point of Care 193 (65-105)
--- NOTE | 2019-10-21 23:35 | PC.NURSE ---
Patient yelling out stating that she is in pain. She is continually screaming. Incontinence care provided and patient was repositioned but she continues to yell out in pain. Charge nurse notified.
--- NOTE | 2019-10-21 23:42 | PC.NURSE ---
Dr. Moon notified of pt's pain and discomfort. New orders received and noted.
[2019-10-22] MEDS: MORPHINE SULFATE 2 MG/ML INJ 6 MG IV PUSH (00:12)
--- NOTE | 2019-10-22 02:00 | PC.NURSE ---
Patient appears to be sleeping, Breathing appears unlabored. No signs of pain are observed at this time.
--- NOTE | 2019-10-22 03:30 | PC.NURSE ---
Patient resting in bed. Breathing appears unlabored. Patient heard moaning occasionally, pillows repositioned for comfort.
[2019-10-22 03:53] VITALS: PULSE 70
--- NOTE | 2019-10-22 04:53 | P.DN_ITS ---
Discharge Sum: Prov Provider Primary care physician: Martin Carvalho M.D. Admitting provider: Junior Thomas MD Discharge Sum: Diag Contributing Factors (1) Acquired hypercoagulable state: (2) Acute hyponatremia: (3) Elevated INR: (4) Hyperkalemia: Discharge Sum: Summary Date and Time Date of admission: 10/21/19 13:20 Date of : 10/22/19 Time of : 04:55 Summary Details: Patient cause in Dr. alvarez care ED doctor Cause of natural disposition: patient transported ot [facility] Additional Data Family: not available Attending physician: Dr alvarez
--- NOTE | 2019-10-22 04:55 | PC.NURSE ---
Patient observed not breathing, vital signs could not be obtained. Charge nurse notified.
--- NOTE | 2019-10-22 04:55 | PC.NURSE ---
confirmed by Karol Alvarez RN and Luisa Deluca RN, and proposal manager writer.
--- NOTE | 2019-10-22 05:04 | PC.NURSE ---
Dr. Moon notified of pt's passing.
--- NOTE | 2019-10-22 05:27 | PC.NURSE ---
[facility] transplant notified of pt's passing. [facility] said the body has been released for the home.
--- NOTE | 2019-10-22 05:33 | PC.NURSE ---
[facility] notified of pt's passing. They said they will come out to take care of arrangements.
--- NOTE | 2019-10-22 05:39 | PC.NURSE ---
IV removed intact
--- NOTE | 2019-10-22 06:10 | PC.NURSE ---
[facility] coroner notified of pt's .
--- NOTE | 2019-10-22 06:29 | PC.NURSE ---
[facility] here to pick up and delivery driver the body to take to the home.
== END 2019-10-22 04:55 | disposition expired | DRG 683 ==
LOC: CHSED 07:59 → CHS2ND 10:07
PROVIDERS: Nurse Practitioner; Admitting Provider Emergency Medicine; Emergency Provider Emergency Medicine; PCP Family Medicine; Visit Provider Emergency Medicine
DX: N17.9 Acute kidney failure, unspecified (principal); I48.20 Chronic atrial fibrillation, unspecified; I50.42 Chronic combined systolic (congestive) and diastolic (congestive) heart failure; N18.9 Chronic kidney disease, unspecified; R79.1 Abnormal coagulation profile; E11.42 Type 2 diabetes mellitus with diabetic polyneuropathy; E11.22 Type 2 diabetes mellitus with diabetic chronic kidney disease; S00.03XA Contusion of scalp, initial encounter; S00.83XA Contusion of other part of head, initial encounter; S00.12XA Contusion of left eyelid and periocular area, initial encounter; W19.XXXA Unspecified fall, initial encounter; J44.9 Chronic obstructive pulmonary disease, unspecified; H40.9 Unspecified glaucoma; E78.5 Hyperlipidemia, unspecified; K21.9 Gastro-esophageal reflux disease without esophagitis; M10.9 Gout, unspecified; F41.9 Anxiety disorder, unspecified; F32.9 Major depressive disorder, single episode, unspecified; F03.90 Unspecified dementia, unspecified severity, without behavioral disturbance, psychotic disturbance, mood disturbance, and anxiety; Z91.81 History of falling; Y93.9 Activity, unspecified; Y92.129 Unspecified place in nursing home as the place of occurrence of the external cause
CPT/HCPCS: 36415; 70450; 72192; 73564; 80048; 80053; 81003; 83880; 85025; 85380; 85610; 85730; 93970; 96361; 96372; 96374; 96375; 96376; 97161; 99284; 99285; A9270; G0378; J1170; J1815; J2060; J2270; J7030